=== PATIENT | female | born 1990 | race Caucasian/White ===

== ENCOUNTER → 2021-04-02 | Outpatient (CLI) | payer BC ==
[2021-04-03 09:01] LABS: Angiotensin-1 Converting Enz. 43 U/L (8-52)
[2021-04-03 13:17] LABS: Zinc, Serum 75 ug/dL (60-130)
[2021-04-03 22:50] LABS: T4, Free (Free Thyroxine) 1.3 ng/dL (0.80-1.80)
== END | disposition home or self-care (01) ==
LOC: LABWHC1 11:23
PROVIDERS: ATTEND Nurse Practitioner Family
DX: Z20.822 Contact with and (suspected) exposure to COVID-19 (principal); R43.2 Parageusia
CPT/HCPCS: 36415; 82164; 82306; 82525; 83885; 84439; 84443; 84630; 86038; 86618; 86769

== ENCOUNTER → 2021-04-11 | Outpatient (CLI) | payer BC ==
--- NOTE | 2021-04-12 04:09 | MR ---
EXAMINATION TYPE: MR brain wo/w con DATE OF EXAM: 04/11/2021 COMPARISON: None HISTORY: Loss of taste, attention to pituitary. CONTRAST: Standard multiplanar, multisequence MRI departmental protocol utilizing 7 mL intravenous Gadavist santo olinium contrast. The ventricles and sulci appear normal. There is no mass effect nor midline shift. There is no eviden ce of intracranial hemorrhage. Diffusion images show no evidence of acute infarct. Corpus callosum appears normal. The brainstem is intact. There is no evidence of posterior fossa mass . The internal auditory canals appear normal. The krishnamurthy-white matter structures have fairly normal sig nal pattern. There is no cerebral edema. The floor of the sella on the left side is slightly lower than the right. In addition the pituitary s talk is just slightly to the right side. There is very slight decreased enhancement of the left side of the pituitary gland compared to the right. This could relate to a microadenoma. Exam limited by th e thick cuts. Impression: There are subtle changes in the pituitary that could relate to left-sided microadenoma. Dedicated pit uitary gland MR scan would BE helpful for further evaluation if clinically indicated.
== END | disposition home or self-care (01) ==
LOC: RADMRIMAIN 08:54
PROVIDERS: ATTEND Nurse Practitioner Family
DX: R43.9 Unspecified disturbances of smell and taste (principal)
CPT/HCPCS: 70553; A9585

== ENCOUNTER → 2024-09-17 | Outpatient (CLI) | payer OTHER ==
[2024-09-17 13:17] LABS: Basophils # (A) 0.05 X 10*3/uL (0.00-0.10); Basophils % (A) 0.7 %; Eosinophils # (A) 0.24 X 10*3/uL (0.04-0.35); Eosinophils % (A) 3.3 %; HCT 44.1 % (37.2-46.3); HGB 14.6 g/dL (12.0-15.0); Lymphocytes # (A) 2.27 X 10*3/uL (0.90-5.00); Lymphocytes % (A) 31.6 %; MCH 29.7 pg (27.0-32.0); MCHC 33.1 g/dL (32.0-37.0); MCV 89.8 FL (80.0-97.0); Mean Platelet Volume 10.9 FL (9.5-12.2); Monocytes # (A) 0.47 X 10*3/uL (0.20-1.00); Monocytes % (A) 6.5 %; NRBC Per 100 WBC 0 X 10*3/uL (0.00-0.01); Neutrophils # (A) 4.02 X 10*3/uL (1.80-7.70); Neutrophils % (A) 56.1 %; Platelet Count 216 X 10*3/uL (140-440); RBC 4.91 X 10*6/uL (4.10-5.20); RDW 12.5 % (11.5-14.5); WBC 7.18 X 10*3/uL (4.50-10.00)
[2024-09-17 13:41] LABS: ALT 34 U/L (8-44); AST 19 U/L (13-35); Albumin 4.3 g/dL (3.8-4.9); Albumin/Globulin Ratio 1.65 Ratio (1.60-3.17); Alkaline Phosphatase 60 U/L (41-126); BUN/Creat Ratio 17.89 Ratio (12.00-20.00); Blood Urea Nitrogen 16.1 mg/dL (9.0-27.0); Calcium 9.3 mg/dL (8.7-10.3); Carbon Dioxide 24.4 mmol/L (21.6-31.8); Chloride 107 mmol/L (96-109); Globulin 2.6 g/dL (1.6-3.3); Glucose 90 mg/dL (70-110); Potassium 4.4 mmol/L (3.5-5.5); Sodium 142 mmol/L (135-145); T4, Free (Free Thyroxine) 1.27 ng/dL (0.80-1.80); Total Bilirubin 0.5 mg/dL (0.3-1.2); Total Protein 6.9 g/dL (6.2-8.2)
[2024-09-17 13:42] LABS: Insulin Level 4.3 mIU/mL (3.0-25.0)
[2024-09-17 13:58] LABS: Follicle Stimulating Hormone 5.9 mIU/mL; Luteinizing Hormone 4.1 mIU/mL
== END | disposition home or self-care (01) ==
LOC: LABWHC1 08:26
PROVIDERS: ATTEND Nurse Practitioner Adult Health
CPT/HCPCS: 36415; 80053; 82040; 82627; 82671; 83001; 83002; 83036; 83525; 83970; 84146; 84270; 84403; 84439; 84443; 85025

== ENCOUNTER 2025-06-26 11:11 | Outpatient (CLI) | payer OTHER ==
[2025-06-26] MEDS ORDERED: ACETAMINOPHEN IV (For NPO) 1,000 MG in EMPTY BAG 1 BAG IVPB STA (11:58)
[2025-06-26 12:16] LABS: Basophils # (A) 0.05 10*3/uL (0.00-0.10); Basophils % (A) 0.4 %; Eosinophils # (A) 0.04 10*3/uL (0.04-0.35); Eosinophils % (A) 0.3 %; HCT 35.7 % (37.2-46.3); HGB 12.3 g/dL (12.0-15.0); Lymphocytes # (A) 1.58 10*3/uL (0.90-5.00); Lymphocytes % (A) 13.6 %; MCH 30.1 pg (27.0-32.0); MCHC 34.5 g/dL (32.0-37.0); MCV 87.5 fL (80.0-97.0); Monocytes # (A) 0.88 10*3/uL (0.20-1.00); Monocytes % (A) 7.6 %; Neutrophils # (A) 8.77 10*3/uL (1.80-7.70); Neutrophils % (A) 75.7 %; Platelet Count 221 10*3/uL (140-440); RBC 4.08 10*6/uL (4.10-5.20); RDW 12.4 % (11.5-14.5); WBC 11.60 10*3/uL (4.50-10.00)
[2025-06-26 12:28] LABS: ALT 16 U/L (4-34); AST 23 U/L (14-36); African American GFR (CKD) >90 (>60 ml/min/1.73 sqM); Blood Urea Nitrogen 8 mg/dL (7-17); Non-African American GFR(CKD) >90 (>60 ml/min/1.73 sqM); Uric Acid 5.4 mg/dL (3.7-7.4)
[2025-06-26 12:39] LABS: Bacteria,Urine Occasional /hpf; Bilirubin,Urine Negative (Negative); Blood,Urine Negative (Negative); Calcium Oxalate Crystals,Urine Moderate /hpf; Color,Urine Yellow; Glucose,Urine (UA) Negative (Negative); Ketones,Urine Negative (Negative); Leukocyte Esterase,Urine Negative (Negative); Mucus,Urine Moderate /hpf; Nitrite,Urine Negative (Negative); PH, Urine 5.5 (5.0-8.0); Protein,Urine Trace (Negative); RBC,Urine 2 /hpf (0-5); Specific Gravity,Urine 1.027 (1.001-1.035); Squamous Epithelial Cell,Urine 73 /hpf (0-4); Urobilinogen,Urine <2.0 mg/dL (<2.0); WBC,Urine 4 /hpf (0-5)
[2025-06-26 13:25] VITALS: BP 124/78; PULSE 74; RESP 16
== END 2025-06-26 13:08 | disposition home or self-care (01) ==
LOC: FBPOP 11:11
PROVIDERS: ATTEND Obstetrics & Gynecology
DX: O13.9 Gestational [pregnancy-induced] hypertension without significant proteinuria, unspecified trimester (principal); O99.330 Smoking (tobacco) complicating pregnancy, unspecified trimester; F17.200 Nicotine dependence, unspecified, uncomplicated; Z3A.00 Weeks of gestation of pregnancy not specified
CPT/HCPCS: 81001; 82565; 82570; 84156; 84450; 84460; 84520; 84550; 85025